=== PATIENT | male | born 1950 | race Caucasian/White ===

== ENCOUNTER → 2024-10-18 13:00 | Outpatient (REF) | payer OTHER, SELFPAY ==
[2024-10-18 10:55] VITALS: BMI 26.9
[2024-10-18 11:28] LABS: Hematocrit 44.7 % (39.0-52.0); Mean Corp Hgb Conc. 33.6 g/dL (33.0-37.0); Mean Corpuscular Hgb 31.2 pg (27.0-31.0); Mean Corpuscular Volume 92.9 fL (80.0-94.0); Mean Platelet Volume 10.2 fL (7.4-10.4); Platelet Count 284 10^3/uL (130-400); Red Blood Cell Count 4.81 10^6/uL (4.70-6.10); Red Cell Dist. Width 13.8 % (11.5-14.5)
[2024-10-18 12:44] LABS: Glycohemoglobin (HgbA1c) 5.3 % (4.0-5.6)
--- NOTE | 2024-10-18 14:51 | PTCARENOTE ---
Abnormal EKG on 10/18/24. Dr. Bueno aware. No intervention needed.
[2024-10-18 16:06] LABS: ALT (SGPT) 36 U/L (0-50); AST (SGOT) 32 U/L (17-59); Albumin 4.2 g/dl (3.5-5.0); Alkaline Phosphatase 101 U/L (38-126); Blood Urea Nitrogen 18 mg/dl (9-20); Calcium 9.8 mg/dl (8.4-10.2); Carbon Dioxide 27 mmol/L (22-30); Chloride 108 mmol/L (98-107); Estimated Creatinine Clearance 77 ml/min; Glucose 81 mg/dl (70-99); Potassium 5.1 mmol/L (3.5-5.1); Sodium 141 mmol/L (135-145); Total Bilirubin 1.9 mg/dl (0.2-1.3); Total Protein 6.8 g/dl (6.3-8.2); eGFR > 60.00
[2024-10-19 12:55] VITALS: BMI 26.9
== END ==
LOC: SDSPAT 13:00
PROVIDERS: ATTENDING PHYSICIAN Orthopaedic Surgery; FAMILY PHYSICIAN Family Medicine; OTHER PHYSICIAN Physician Assistant
DX: M17.11 Unilateral primary osteoarthritis, right knee (principal); Z01.818 Encounter for other preprocedural examination
CPT/HCPCS: 36415; 80053; 83036; 85027; 87070; 93005

== ENCOUNTER 2024-12-09 06:09 | Day surgery (SDC) | payer OTHER, SELFPAY ==
--- NOTE | 2024-10-25 14:09 | CM ---
CM reviewed medical records. Cm spoke with patient via phone. Patient confirmed demographics. Patient lives independently with . Patient does not have a history of VN, SNF or DME. Patient's will purchased required equipment prior to
surgery. Patient is active with his PCP. Patient will use [facility] in [place] for medication services.
Patient understands he will have home care same day.
PLAN: home with VN, then transition to outpatient PT.
--- NOTE | 2024-11-25 11:47 | VNURNOTE ---
Patient is scheduled for an elective L TKA on 12/09 - he is a same day patient with Dr Boo. Spoke with patient prior to surgery. Introduced role of [facility] Liaison. Patient reports that he lives with his in a 1 story home.
There is 1 step to enter.
He has a cane and rolling walker.
PCP is Dr Cortes.
Discussed [facility] joint protocol and post surgical plans.
Reviewed that he will have VN services initially and will then start outpatient PT.
Patient selects [facility] for his home care needs and will go to PT in [place] for outpatient PT. Scheduled for 12/13.
Patient is in agreement with plan and states that his will be home with him. Advised to bring RW with him day of surgery. Referral placed in [facility].
Plan: [facility] per [facility] joint protocol then outpt PT on 12/13
[2024-11-26 11:58] LABS: Hematocrit 41.5 % (39.0-52.0); Hemoglobin 14.0 g/dL (13.0-18.0); Mean Corp Hgb Conc. 33.7 g/dL (33.0-37.0); Mean Corpuscular Volume 91.8 fL (80.0-94.0); Platelet Count 250 10^3/uL (130-400); Red Cell Dist. Width 13.7 % (11.5-14.5)
[2024-11-26 12:25] LABS: Glycohemoglobin (HgbA1c) 5.4 % (4.0-5.6)
[2024-11-26 12:50] LABS: ALT (SGPT) 35 U/L (0-50); AST (SGOT) 32 U/L (17-59); Albumin 4.1 g/dl (3.5-5.0); Alkaline Phosphatase 90 U/L (38-126); Blood Urea Nitrogen 14 mg/dl (9-20); Calcium 9.2 mg/dl (8.4-10.2); Carbon Dioxide 26 mmol/L (22-30); Chloride 106 mmol/L (98-107); Glucose 88 mg/dl (70-99); Potassium 4.8 mmol/L (3.5-5.1); Sodium 139 mmol/L (135-145); Total Protein 6.5 g/dl (6.3-8.2); eGFR > 60.00
[2024-11-26 14:12] VITALS: BMI 26.3
--- NOTE | 2024-11-26 15:52 | HPS.HSE ---
Family Physician
-
Family Physician: Juvencio Cortes
Chief Complaint
-
Advanced primary osteoarthritis of the left knee. Same-day surgery.
History of Present Illness
The patient is a 74-year-old male presenting today for advanced primary osteoarthritis of the left knee. The patient reports significant left knee pain and instability secondary to this diagnosis. He notes that his current left knee
symptoms are greatly interfering with his activities of daily living and are overall impacting his quality of life. He has tried and failed multiple conservative treatment measures in the past for his left knee symptoms. These conservative treatment
measures include self-directed therapeutic exercises, activity modification, medical management with Tylenol, and the application of ice and/or heat. Recent x-ray findings of the left knee demonstrated advanced tricompartmental degenerative changes.
He was determined to be in need of a left total knee arthroplasty. He denies any current complaints today such as chest pain, shortness of breath, palpitations, nausea, vomiting, diarrhea, lightheadedness, dizziness, cough, sore throat, or fever.
Medical History
Past Medical History
Past Medical History: Reports Other
Additional Past Medical History:
1. Osteoarthritis.
2. Hypertension.
3. Hyperlipidemia.
4. Marked sinus bradycardia with atrial ectopy, asymptomatic.
5. Colon polyps.
6. Diverticulosis.
7. Prostate cancer, 2017, status post prostatectomy and radiation.
8. Skin cancer, status post Mohs.
9. Gilbert's syndrome.
Past Surgical History: Reports Other
Additional Past Surgical History:
1. Prostatectomy.
2. Cholecystectomy.
3. Left hand foreign body removal.
4. Mohs.
5. Colonoscopy.
Social History
Tobacco: Non-smoker
Alcohol: None
Personal:
Living: Other (The patient lives in a one-story cottage with his .)
Family History
Family History: Not pertinent
Allergies / Home Medications
Allergy/Medication List:
HOME MEDICATIONS:
1. Acetaminophen 500-1000 mg p.o. daily as needed.
2. Amino acids one capsule p.o. twice weekly.
3. Amlodipine 10 mg p.o. at bedtime.
4. Arginate 800 mg p.o. daily.
5. Atorvastatin 20 mg p.o. at bedtime.
6. Collagen one dose p.o. daily.
7. Probiotics 60,000 mmu cells p.o. daily.
8. Magnesium glycinate 500 mg p.o. at bedtime.
9. Vitamin B6 100 mg p.o. daily.
10. Turmeric root extract 1500 mg p.o. daily.
11. Vitamin B complex one tablet p.o. daily.
ALLERGIES: Acetaminophen in large doses. NSAIDs. Oxycodone.
Review of Systems
-
A 12 point ROS was completed and negative except as noted: Yes
Physical Exam
Vital Signs
Blood pressure 121/70. Heart rate 65. Respirations 18. Pulse ox 98%.
Height 5 feet, 11 inches. Weight 85.5 kg. BMI 26.3.
Physical Exam
General: Well Developed, Well Nourished and No Apparent Distress
HEENT: NormoCephalic, Moist mucous membranes, Atraumatic and PERRLA
Respiratory: Clear
Cardiac: Regular Rhythm (with occasional ectopy)
GI: Soft, Non Tender and Non Distended
Musculoskeletal: Other (Left knee moderate joint effusion. Alignment is varus. Knee AROM of terminal extension to 0 degrees and flexion >120 degrees. Stable to varus and valgus stress testing at 0 and 30 degrees. Mild to moderate joint line
tenderness in the medial and lateral tibio-femoral joint space and patellar facets)
Skin: Warm and Dry
Neuro: AO x 3 and Nonfocal/grossly intact
Laboratory Results
-
11/26/24 10:36
11/26/24 10:36
Laboratory Results
Total Bilirubin 1.9 mg/dl (0.2-1.3) H 11/26/24 10:36
AST 32 U/L (17-59) 11/26/24 10:36
ALT 35 U/L (0-50) 11/26/24 10:36
Alkaline Phosphatase 90 U/L (38-126) 11/26/24 10:36
Hemoglobin A1c 5.4.
MRSA screen negative.
EKG provided by Cardiology.
Impression/Plan
-
CLEARANCES:
1. Primary medical, Dr. Juvencio Cortes, cleared.
Primary medical phone number: [phone].
2. Cardiology, Dr. Blake Peterson, cleared.
3. Dental waived.
IMPRESSION/PLAN:
1. Advanced primary osteoarthritis of the left knee in need of a left total knee arthroplasty with Dr. Nabeel Boo on 12/09/2024. The benefits and risks of the procedure have been explained to the patient. The patient understands these risks and
wishes to proceed.
2. Deep vein thrombosis prophylaxis: Eliquis due to anaphylactic reaction to NSAIDs previously. This, reportedly, included Aspirin. He will be on Eliquis 2.5 mg p.o. twice a day for 4 weeks post-surgery.
3. 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 In preparation for his procedure, he has
already been prescribed Tramadol 50 mg, one to two tablets p.o. every six hours as needed for moderate to severe post-operative pain. He reportedly tolerated this medication well after prior procedures. He will also utilize Acetaminophen, no more
than 1500 mg daily, a Prednisone 40 mg p.o. taper, and Gabapentin 300 mg p.o. at bedtime. NSAIDs will be avoided.
4. Post-operative bowel regimen: The patient is aware to continue Colace and Senokot post-surgery, regardless of oral intake, until having regular bowel movements. Adequate hydration, the minimization of opioids, and early mobility as tolerated were
also discussed pre-operatively.
Patient's home phone number: [phone].
Patient's cell phone number: [phone].
Patient's contact (Winston Polanco - Spouse): [phone].
--- NOTE | 2024-12-02 09:12 | VNURNOTE ---
Confirmed with Sophia in [facility] patient is on schedule for L knee Same Day Surgery on 12/09. [facility] referral accepted.
[2024-12-06 12:47] VITALS: BMI 26.3
[2024-12-09] VITALS (11 sets, daily range): BP systolic 120–155; BP diastolic 70–100; PULSE 118; O2SAT 95
[2024-12-09] MEDS: TYLENOL 650 MG PO (06:31)
[2024-12-09] MEDS: NORMOSOL-R/PLASMALYTE-A 1000 IV (06:49)
[2024-12-09] MEDS: ANCEF 5 IV (12:13)
--- NOTE | 2024-12-09 16:38 | OR.RPT ---
Operative Report
Operative Report
Orthopaedic Surgery Operative Note
DATE OF OPERATION: 12/09/2024
PREOPERATIVE DIAGNOSES: Osteoarthritis, left knee.
POSTOPERATIVE DIAGNOSES: Osteoarthritis, left knee.
OPERATION PERFORMED:
1) Left total knee arthroplasty (CPT 17458)
2) Intraosseous administration of analgesic (CPT 18895)
SURGEON: Nabeel Boo MD
ASSISTANTS: Cristino Louie PA-C who helped with patient and limb positioning and retraction
ANESTHESIA: Spinal by anesthesia plus intraoperative infusion of morphine into the tibial metaphysis by Dr. Boo
COMPLICATIONS: None.
ESTIMATED BLOOD LOSS: 20mL
DRAINS: None
TOURNIQUET TIME: 56 minutes.
IMPLANTS:
- Miles Persona CR Femur, size 11
- Miles Persona tibia base plate, size F
- Miles Persona ultracongruent articular surface, 11 mm
- DJO Loring bone cement
INDICATIONS: The patient presented to my office with debilitating left knee pain due to osteoarthritis. We reviewed the natural history of this problem, as well as the risks, benefits, and alternatives of various treatment options. The patient
exhausted all nonoperative treatment options and wished to proceed with knee replacement surgery. The patient understood the risks which included, but were not limited to, bleeding, infection, failure to relieve pain, more pain than preop, damage to
blood vessels and nerves, need for reoperation, mechanical failure of the implants, wound healing problems, stiffness, instability, blood clot, pulmonary embolism, myocardial infarction, pneumonia, arrhythmia, CVA, and . The patient accepted
these risks and wished to proceed. All questions were answered, and informed consent was obtained.
PROCEDURE IN DETAIL: The patient was identified in the preoperative holding area. The left knee was identified as the operative site. The patient was taken in the operating room and placed in a supine position on the operating table. Spinal/General
anesthesia was performed. IV antibiotics and tranexamic acid were administered. An SCD was placed on the right lower extremity. A well-padded tourniquet was placed on the proximal thigh. All bony prominences were well padded. The left lower
extremity was prepped and draped in the usual sterile fashion.
We performed a surgical time-out. An interarticular block was performed with local anesthetic with epinephrine. The limb was exsanguinated with an Esmarch bandage, then the tourniquet was inflated to 250 mmHg. I performed interosseous administration
of morphine-saline solution via a Jamshidi style intraosseous needle into the proximal medial tibial metaphysis as described by Tai Aguayo MD. This was performed to aid in pain control. A midline skin incision was made followed by a medial
parapatellar arthrotomy. A subperiosteal peel was performed on the medial tibia. I excised part of the infrapatellar fat pad to improve our visualization as well as tissue over anterior femur. The patella was everted and the knee was flexed. I
excised the remnants of the anterior and posterior cruciate ligaments as well as tibial and femoral osteophytes with rongeurs.
The knee was flexed, and the extramedullary tibial cutting guide was aligned. Beaver was aligned at neutral, rotation was centered on the tibial tubercle, and coronal alignment was aligned with the mechanical axis of the tibia and center of the ankle
joint. The cut height was 10mm off the lateral tibia joint surface. The guide was secured into place. The MCL and LCL were protected. The tibia surface was cut. The cut surface was inspected after removal to ensure appropriate height and slope based
on the preoperative plan. The cut was checked with a drop juancho. It was centered nicely at the ankle.
A drill was used to open the femoral canal. The intramedullary distal femoral cutting guide was inserted into the femur. This was set at 5 degrees +0. This was secured into place with three pins. The cut level was checked with an deejay wing. The
distal femur was cut through the cutting guide. The IM guide was reinserted to double check that the level of resection was flush and in appropriate alignment.
Bere's line and the transepicondylar axis were marked on the femur. The femoral sizing guide was applied to the anterior femur. Pins were inserted, and the 4-in-1 cutting guide was applied and secured into place. The rotation was compared to
Wharncliffe's line, the transepicondylar axis, and the neutral tibia cut and was found to be appropriate. The width was checked and found to be appropriate and lateralized on the femur. The anterior, posterior, and chamfur cuts were made. A lamina
apparel trimmings sales representative was used to open the flexion gap, and posterior osteophytes were removed with a curved osteotome. The remnant medial and lateral meniscus were also removed. I prophylactically cauterized the lateral geniculate arteries. A 10mm spacer block
was applied to the flexion gap and was noted to be balanced medially and laterally. The knee was extended, and the block showed symmetric to extension and flexion gaps.
The tibia was exposed and sized. Rotation was set in line with the tibial tubercle and congruent with the femur. The trial was secured into place with two pins. The trial femur was impacted into place, and a trial articular surface was placed. The
knee was taken through range of motion and noted to be stable throughout the arc of motion without gaping or excess tension. The patella tracked centrally throughout the arc of motion without need for further releases. No full thickness cartilage
defects.
The trials were removed. The tibia keel was prepared with the punch and the drill. The bone surfaces were irrigated with sterile saline and dried. The cement was mixed in a vacuum mixer. Cement gun was used to apply cement to the tibial surface and
the undersurface of the tibial implant. Cement was pressurized into the tibial canal and tibia surface. The tibial component was impacted into place. Excess cement was removed. Cement was applied to the femoral surface and the femoral component. The
femoral component was impacted into place, and excess cement removed. A trial articular surface was inserted, and the knee was extended while the cement polymerized. The tourniquet was let down, and meticulous hemostasis was achieved. Dilute
betadine was poured into the wound and allowed to soak for 3 minutes. The knee was irrigated with copious normal saline.
Once the cement was polymerized, the trial articular surface was removed. Any excess cement was removed. The knee was trialed, and the final articular surface was selected and inserted into the tibial locking mechanism. The knee was reduced. A fresh
drape was applied to the surgical field.
The arthrotomy was closed with 0-PDS. Once closed, an interarticular block was performed with local anesthetic with epi. The deep dermal layer was closed with 2-0 PDS, and the subcuticular skin was closed with 3-0 monocryl. A Dermabond Prineo
dressing was applied to the skin in full flexion. Once this was completely dry, a sterile waterproof dressing was applied.
The anesthesia team performed an adductor canal block in the OR. The patient awoke from anesthesia without any difficulties. The sponge and instrument counts were correct x2 at the end of the case.
Riaz Boo MD
== END 2024-12-09 13:10 | disposition home or self-care (01) ==
LOC: SDS 06:09
PROVIDERS: ATTENDING PHYSICIAN Orthopaedic Surgery; FAMILY PHYSICIAN Family Medicine; OTHER PHYSICIAN Physician Assistant
DX: M17.12 Unilateral primary osteoarthritis, left knee (principal)
CPT/HCPCS: 27447; C1776; 36415; 73560; 80053; 83036; 85027; 87070; 97116; 97162; C1713